=== PATIENT | male | born 1945 | race Caucasian/White ===

== ENCOUNTER → 2020-07-15 10:12 | Outpatient (REF) | payer MEDICARE, SELFPAY ==
--- NOTE | 2020-07-15 | NM_ITS ---
EXAMINATION: NM BONE SCAN OF THE WHOLE BODY CLINICAL INFORMATION: Prostate cancer. COMPARISON: No previous bone scan are available for comparison. Radiographs of the right shoulder dated 07/13/2018 are the most recent radiographs available for comparison. The diagnostic CT scan of the right shoulder dated 08/01/2018, is also available for comparison. TECHNIQUE: Multiple gamma scintillation camera images of the whole body were performed 3 hours following the intravenous administration of 34 mCi Tc-99m MDP. FINDINGS: In the head, no significant abnormalities are present. In the thoracic cage and upper extremities, there is mildly increased activity in the acromioclavicular joints bilaterally and faintly in the sternoclavicular joints bilaterally. There is a mild diffuse increase in activity in the right humeral head. In the spine, no significant abnormalities are present. In the pelvis, no significant abnormalities are present. In the lower extremities, no significant abnormalities are present. No other definite bony abnormalities are noted. The urinary bladder and faint visualization of both kidneys are noted. The CT scan of the right shoulder dated 08/01/2018 shows a comminuted fracture of the right humeral head that corresponds to mildly increased activity present on the current bone scan. IMPRESSION: A few mild nonspecific abnormalities are noted as described above and these are all likely arthritic or traumatic in etiology. None of these abnormalities is strongly suspicious for metastatic disease.
== END ==
LOC: HO.NUCMED 10:12
PROVIDERS: PCP Internal Medicine; Visit Provider Urology
DX: C61 Malignant neoplasm of prostate (principal)
CPT/HCPCS: 78306; A9503

== ENCOUNTER 2020-07-22 10:18 | Outpatient (REF) | payer MEDICARE, SELFPAY ==
--- NOTE | 2020-07-22 10:27 | CT_ITS ---
EXAMINATION: CT PELVIS WITHOUT CONTRAST CLINICAL INFORMATION: Prostate cancer COMPARISON: Previous bone scan from July 2020 TECHNIQUE: Helical scanning was performed with submillimeter collimation through the pelvis. Sagittal and coronal multiplanar 2-D reconstructions were obtained. This CT examination was performed using dose optimization techniques as appropriate, variously including the following: *Automated exposure control *Adjustment of mA and/or kV according to patient size (this includes techniques or standardized protocols for targeted exams where dose is matched to indication/reason for exam; i.e. extremities or head) *Use of iterative reconstruction technique DLP: 379 mGy-cm FINDINGS: PELVIS: The prostate gland is slightly enlarged measuring 5.7 x 5.2 cm in AP and transverse dimension. The periprostatic fat is normal. No lymphadenopathy is seen. The bladder is unremarkable. There is diverticulosis of the colon. There is evidence of atherosclerotic disease. No significant hernia is seen. No focal bone lesion is seen. There are changes of the lower lumbar spine. There is grade 1 9 mm anterior subluxation of L5 with respect to S1. There is a bilateral L5 pars defect. There is degenerative disc disease at L5-S1. There is a small radiopaque density seen right L5-S1 lateral recess. IMPRESSION: Enlarged prostate gland. No adenopathy. Diverticulosis of the colon. Post change of the lower lumbar spine. 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
== END 2020-07-22 10:19 | disposition home or self-care (01) ==
LOC: HO.CT 10:18
PROVIDERS: PCP Internal Medicine; Visit Provider Urology
DX: C61 Malignant neoplasm of prostate (principal)
CPT/HCPCS: 72192

== ENCOUNTER → 2020-08-05 09:23 | Outpatient (BNVA) | payer MEDICARE, SELFPAY | PROVIDERS: PCP Internal Medicine; Visit Provider Urology | DX: C61 Malignant neoplasm of prostate (principal); N41.9 Inflammatory disease of prostate, unspecified | CPT/HCPCS: 96402; 99212; J9217 ==

== ENCOUNTER → 2020-08-19 12:49 | Outpatient (BNVA) | payer MEDICARE, SELFPAY | PROVIDERS: PCP Internal Medicine; Visit Provider Urology | DX: C61 Malignant neoplasm of prostate (principal) | CPT/HCPCS: 81002; 99212 ==

== ENCOUNTER → 2020-09-06 13:45 | Outpatient (BNVA) | payer MEDICARE, SELFPAY | PROVIDERS: PCP Internal Medicine; Referring Provider Internal Medicine; Visit Provider Internal Medicine Cardiovascular Disease | DX: I25.10 Atherosclerotic heart disease of native coronary artery without angina pectoris (principal) | CPT/HCPCS: 93005; 99212 ==

== ENCOUNTER 2020-09-14 12:25 | Outpatient (REF) | payer MEDICARE, SELFPAY ==
--- NOTE | 2020-09-14 12:30 | XR_ITS ---
EXAMINATION: XR KNEE, RIGHT CLINICAL INFORMATION: Injury COMPARISON: None TECHNIQUE: Four views of the right knee. FINDINGS: Bone alignment is normal. No fracture or dislocation is seen. Joint spaces are normal. There is a moderate joint effusion. XR/XR knee RT 4V IMPRESSION: Joint effusion. Otherwise unremarkable exam.
== END 2020-09-14 12:26 | disposition home or self-care (01) ==
LOC: HO.HMGCX 12:25
PROVIDERS: PCP Internal Medicine; Visit Provider Nurse Practitioner Family
DX: S89.90XA Unspecified injury of unspecified lower leg, initial encounter (principal)
CPT/HCPCS: 73564

== ENCOUNTER 2020-09-19 07:01 | Outpatient (REF) | payer MEDICARE, SELFPAY ==
[2020-09-19 07:40] VITALS: BP 115/65; PULSE 84; RESP 16; TEMP 36.1; O2SAT 95
[2020-09-19 07:44] VITALS: BMI 65.7
--- NOTE | 2020-09-19 08:14 | PM.OP ---
Brief Operative Note Date of Service: 09/19/20 Pre-op diagnosis: Prostate cancer Post-op diagnosis: same Procedure: US guided prostate block US guided prostate gold seed marker placement Implants: gold seds - 2 right, 1 left Surgeon: Jonathan Winchester MD Anesthesia: local Estimated blood loss (mL): 0 Pathology: none sent Condition: stable Disposition: same day
--- NOTE | 2020-09-19 08:15 | MHC.SHP ---
Pre-Procedural Eval Section B Chief Complaint: Prostate Cancer Details of Present Illness: prostate cancer Relevant Family History (Specify if Yes): No Relevant Social History: None Present Medications: see Short Stay Collaborative assessment Medical History: No relevant PMH Allergies: Allergies Allergy/AdvReac Type Severity Reaction Status Date / Time No Known Allergies Allergy Unverified 06/23/20 16:39 [No Known Allergies*] metformin AdvReac Unknown stomach Verified 09/14/20 12:00 upset Review of Systems Sugical H&P ROS: Negative: Constitution, Cardiovascular, Respiratory, Neurological, Psychiatric, Hem-Onc, Allergic/Immunologic, Gastrointestinal, Genitourinary, Musculoskeletal, Integumentary, Endocrine and Eyes/Ears/Nose/Throat Exam Surgical H&P Exam: Normal: HEENT, Normal: Heart, Normal: Lungs, Normal: Extremities, Normal: Abdomen, Normal: Skin and Normal: Neurological Plan Diagnosis/Plan: Unchanged Patient has been examined and remains a candidate for the planned procedure
--- NOTE | 2020-09-19 08:16 | W.PM.OPN ---
Operative Note Operative Note Date of Service: 09/19/20 Narrative: Preoperative diagnosis: prostate cancer Postoperative diagnosis: prostate cancer Procedure: 1. transrectal ultrasound-guided pudendal nerve block 2. transrectal ultrasound-guided gold seed placement Surgeon: Dr. Jonathan Winchester Anesthetic: Local Indications for procedure: Prostate Cancer Procedure: After informed consent was verified, the patient was brought into the procedure area and lay left-hand side down on the table. Patient identity confirmed. Perioperative antibiotics confirmed. Gel was placed per rectum Ultrasound probe was placed per rectum A ultrasound-guided pudendal nerve block was performed using 10 cc of 1% lidocaine. 8 cc was placed at the base and 2 cc of the apex. 3 gold seed markers placed. 2 on the right, 1 on the left. The purpose is for triangulation. He tolerated the procedure well. Was able to ambulate to bathroom after 5 minutes. Printed instructions regarding antibiotic use and common side effects such as low-grade temperature and bleeding were given.
[2020-09-19 08:19] VITALS: BP 138/75; PULSE 80; RESP 16; O2SAT 94
== END 2020-09-19 07:02 | disposition home or self-care (01) ==
LOC: HO.MS 07:01
PROVIDERS: PCP Internal Medicine; Visit Provider Urology
PROC: (CPT 55876; principal; 2020-09-19 08:00)
DX: C61 Malignant neoplasm of prostate (principal)
CPT/HCPCS: 55876; 76942; A4648

== ENCOUNTER → 2021-01-25 13:18 | Outpatient (BNVA) | payer MEDICARE, SELFPAY | PROVIDERS: Visit Provider Urology | DX: C61 Malignant neoplasm of prostate (principal); N41.9 Inflammatory disease of prostate, unspecified; R39.15 Urgency of urination | CPT/HCPCS: 81002; 96402; 99212; J9217 ==

== ENCOUNTER 2021-03-07 13:40 | Outpatient (REF) | payer MEDICARE, SELFPAY ==
[2021-03-07 14:51] LABS: Glucose Urine UA NEG (NEG); Leukocyte Esterase Urine NEG (NEG); Nitrite Urine NEG (NEG); Specific Gravity - Urine >= 1.030 (1.005-1.025); Urine Blood NEG (NEG); Urine Ketones 5 MG/DL (NEG); Urine Protein TRACE MG/DL (NEG-TRACE)
[2021-03-07 14:52] LABS: Appearance Urine CLEAR; Color Urine YELLOW
[2021-03-07 15:03] LABS: Calcium Oxalate Crystals Urine 1+ /LPF; Mucus Urine 1+ /LPF; RBC Urine 0 /HPF (0); Squamous Epithelial Cell Urine 1+ /LPF
[2021-03-07 15:05] LABS: Prostate Specific Antigen 1.14 ng/mL (<0.05-4.0)
[2021-03-11 14:16] LABS: Testosterone, Total 10 ng/dL (250-1100)
== END 2021-03-07 13:41 | disposition home or self-care (01) ==
LOC: HO.LAB 13:40
PROVIDERS: Visit Provider Urology
DX: E29.1 Testicular hypofunction (principal); R39.15 Urgency of urination; C61 Malignant neoplasm of prostate; Z12.5 Encounter for screening for malignant neoplasm of prostate
CPT/HCPCS: 36415; 81001; 84153; 84403; 87086

== ENCOUNTER → 2021-06-15 13:44 | Outpatient (BNVA) | payer MEDICARE, SELFPAY | PROVIDERS: Visit Provider Urology | DX: N41.9 Inflammatory disease of prostate, unspecified (principal); C61 Malignant neoplasm of prostate | CPT/HCPCS: 99212 ==

== ENCOUNTER 2021-07-05 14:20 | Outpatient (REF) | payer MEDICARE, SELFPAY ==
--- NOTE | ~2021-07-05 | XR_ITS ---
EXAMINATION: XR ELBOW, LEFT CLINICAL INFORMATION: S50.00XA - Contusion left elbow, pain COMPARISON: None TECHNIQUE: AP, lateral, and oblique views of the left elbow. FINDINGS: There is soft tissue swelling overlying the olecranon which may represent olecranon bursal effusion. There is no fracture, dislocation, or visible intracapsular effusion. The articular surfaces appear intact. There is no joint narrowing or erosive change. There is small olecranon and a punctate spur medial epicondyle. XR/XR elbow LT min 3V IMPRESSION: 1. Soft tissue swelling overlying olecranon, possible bursal effusion. 2. No fracture or dislocation or arthropathy. 3. Tiny spurs at olecranon and medial epicondyle.
== END 2021-07-05 14:21 | disposition home or self-care (01) ==
LOC: HO.HMGCX 14:20
PROVIDERS: PCP Internal Medicine; Visit Provider Internal Medicine
DX: S50.02XA Contusion of left elbow, initial encounter (principal); X58.XXXA Exposure to other specified factors, initial encounter; Y93.9 Activity, unspecified; Y92.9 Unspecified place or not applicable; Y99.9 Unspecified external cause status
CPT/HCPCS: 73080

== ENCOUNTER → 2021-07-27 11:29 | Outpatient (BNVA) | payer MEDICARE, SELFPAY | PROVIDERS: PCP Internal Medicine; Visit Provider Urology | DX: R39.15 Urgency of urination (principal); C61 Malignant neoplasm of prostate | CPT/HCPCS: 96402; 99212; J9217 ==

== ENCOUNTER → 2021-09-07 09:59 | Outpatient (BNVA) | payer MEDICARE, SELFPAY | PROVIDERS: PCP Internal Medicine; Referring Provider Internal Medicine; Visit Provider Internal Medicine Cardiovascular Disease | DX: I25.10 Atherosclerotic heart disease of native coronary artery without angina pectoris (principal); I10 Essential (primary) hypertension; R07.9 Chest pain, unspecified; R06.02 Shortness of breath | CPT/HCPCS: 93005; 99212 ==

== ENCOUNTER → 2021-09-12 08:25 | Outpatient (REF) | payer MEDICARE, SELFPAY ==
--- NOTE | 2021-09-12 08:28 | CA_ITS ---
Transthoracic Echocardiogram Amended Patient (Last, First, Middle): Hector Huff D Gender: Male Date of : 1945 Age: 76 Procedure Date: 09/12/2021 Procedure Type: Transthoracic Echocardiogram Location: OP Height: 182.88 cm Weight: 102.06 kg BSA: 2.24 m2 Heart Rate: bpm Air Bag Builder: MALIK Referring MD: Cedric Bautista MD Symptoms: R06.02 - Shortness of breath Study Quality: Fair ECG Rhythm: Sinus Conclusions: - The left ventricular systolic function is normal. The calculated ejection fraction is 67% by biplane method. - The basal inferior segment is hypokinetic. - There is moderate calcification of the aortic valve. - There is mild mitral annular calcification. Findings Left Ventricle Normal left ventricular cavity size. The left ventricular systolic function is normal. The calculated ejection fraction is 67% by biplane method. E/E prime ratio is between 8 and 15 consistent with indeterminate filling pressures. Evidence suggests grade I (mild) diastolic dysfunction. There is mild septal and mild basal asymmetric hypertrophy. Wall Motion Rest Echo Findings The basal inferior segment is hypokinetic. Right Ventricle Normal right ventricular cavity size and systolic function. Atria Both atria are normal in size. Aortic Valve The aortic valve was not well visualized. There is moderate calcification of the aortic valve. There is no aortic valve stenosis. The peak aortic gradient is 12 mmHg.There is no aortic valve regurgitation. Mitral Valve There is mild mitral annular calcification. There is trace mitral valve regurgitation. There is no mitral valve stenosis. Pulmonic Valve The pulmonic valve was not well visualized. Tricuspid Valve There is trace tricuspid valve regurgitation. The pulmonary artery systolic pressure is normal. Great Vessels The aortic annulus, sinuses of valsalva, and asc aorta are normal in size. Venous The inferior vena cava is normal in size and collapses greater than 50% with inspiration. Pericardium/Pleural There is no evidence of pericardial effusion. Prior Study Comparison Changes noted compared to prior study dated: 05/15/2018. See comments on wall motion. Differences in study quality could also play a role. Measurements 2D Linear Measurements IVSd: 0.88 0.6-0.9/0.6-1.0 cm LVIDd: 4.49 3.9-5.3/4.2-5.9 cm LVIDd Index: 2.00 2.4-3.2/2.2-3.1 cm/m2 LVIDs: 2.73 2.0-3.6 cm LVPWd: 0.95 0.7-1.1 cm Ao Root: 3.70 2.1-3.5 cm LA Diam: 4.10 2.7-3.8/3.0-4.0 cm LAIDs Index: 1.83 1.5-2.3 cm/m2 LV Mass: 167.65 67-162/88-224 g LV Mass Index: 74.84 43-95/49-115 g/m2 LVOT Diam: 2.10 3.0+(-)1.3 cm 2D Volumes LA Vol: 25.00 2D Systolic Function EF 4C: 63.20 >55% EF 2C: 71.70 >55% EF BiP: 67.40 >55% Mitral Valve MV Pk E: 0.70 MV PK A: 0.95 MV Decel Time: 191.00 E/A: 0.70 E'Lateral: 5.44 E'Medial: 5.00 E/E' Med: 14.00 E/E' Lat: 12.80 PHT: 56.00 MVA PHT: 3.93 Decel Lamar: 3.65 Aortic Valve AoV Pk Fede: 1.74 AoV Pk Grad: 12.00 AI Pk Fede: 2.99 AI Lamar: 1.37 LVOT LVOT Pk Fede: 1.17 LVOT Mn Fede: 0.81 LVOT VTI: 0.25 LVOT Pk Grad: 5.00 LVOT Mn Grad: 3.00 LVOT Diam: 2.10 LVOT Area: 3.46 Diastolic Function MV Pk E: 0.70 MV Pk A: 0.95 E/A: 0.70 E'Medial: 5.00 E/E' Med: 14.00 E' Laterial: 5.44 E/E' Lat: 12.80 Right Ventricle TAPSE (mm): 2.35 Tricuspid Valve TR Pk Fede: 2.34 TR Pk Grad: 22.00 RA Press: 3.00 RVSP: 25.00 Great Vessels Aorta Ao Root-2D: 3.70 2.0-3.7 cm Ao Asc: 3.70 2.1-3.4 cm Updated in Other Vendor System with Status of Final Jesus Peters MD electronically signed on 09/13/2021 12:40:23 PM with status of Final
== END ==
LOC: HO.CARD 08:25
PROVIDERS: PCP Internal Medicine; Visit Provider Internal Medicine Cardiovascular Disease
DX: R06.02 Shortness of breath (principal); I10 Essential (primary) hypertension; R39.15 Urgency of urination; C61 Malignant neoplasm of prostate; E11.9 Type 2 diabetes mellitus without complications; E78.5 Hyperlipidemia, unspecified; Z95.5 Presence of coronary angioplasty implant and graft; Z88.8 Allergy status to other drugs, medicaments and biological substances
CPT/HCPCS: 93306; Q3014

== ENCOUNTER 2021-09-16 14:17 | Outpatient (REF) | payer MEDICARE, SELFPAY ==
--- NOTE | ~2021-09-16 | XR_ITS ---
EXAMINATION: XR RIBS, BILATERAL CLINICAL INFORMATION: Right anterior rib pain COMPARISON: None TECHNIQUE: 7 views of the ribs and chest PA FINDINGS: No focal consolidation, pleural effusion or pneumothorax. Heart size is normal. Atherosclerosis thoracic aorta. No acute displaced rib fracture. Osseous structures are unremarkable. Cholecystectomy clips. XR/XR ribs BI min 4V w CXR1V IMPRESSION: No acute displaced rib fracture identified. No acute pulmonary process.
--- NOTE | ~2021-09-16 | XR_ITS ---
EXAMINATION: XR SHOULDER, RIGHT CLINICAL INFORMATION: Right shoulder pain status post fall. COMPARISON: Right shoulder radiographs dated 07/13/2018. TECHNIQUE: AP external rotation, Grashey, scapular Y, and axillary views of the right shoulder. FINDINGS: Nonacute deformity is seen in the proximal right humerus. The right glenohumeral and acromioclavicular joints are intact. There is no dislocation. The visualized right ribs are intact. The soft tissues are unremarkable. XR/XR shoulder RT min 2V IMPRESSION: Deformity in the proximal right humerus appears to represent a healed fracture seen on the 2018 right shoulder radiographs. No definitive acute fracture.
== END 2021-09-16 14:18 | disposition home or self-care (01) ==
LOC: HO.HMGCX 14:17
PROVIDERS: PCP Internal Medicine; Visit Provider Physician Assistant Medical
DX: M25.511 Pain in right shoulder (principal); R07.81 Pleurodynia; W19.XXXD Unspecified fall, subsequent encounter
CPT/HCPCS: 71111; 73030

== ENCOUNTER → 2021-11-03 13:04 | Outpatient (BNVA) | payer MEDICARE, SELFPAY | PROVIDERS: Visit Provider Urology | DX: Z13.89 Encounter for screening for other disorder (principal) | CPT/HCPCS: Q3014 ==

== ENCOUNTER → 2021-11-21 07:48 | Outpatient (REF) | payer MEDICARE, SELFPAY ==
--- NOTE | ~2021-11-21 | NM_ITS ---
Myocardial perfusion study Indication: Recurrent chest pain with prior CAD to evaluate for myocardial ischemia Technique: The patient was brought in for a Lexiscan perfusion study on 11/21/2021. Patient performed low-level exercise and was injected 0.4 mg of Lexiscan intravenously. Within a minute of injection, 35 mCi of sestamibi was given intravenously. Images were obtained using the SPECT gamma camera interlaced with the gating device. Images were obtained in supine position. Resting perfusion study was performed on 11/22/2021. Patient was administered 35 mCi of sestamibi intravenously at rest. Images were then obtained in supine position. Images obtained with and without CT attenuation. Total DLP 123 mGy-cm. Images were processed with the software and compared side to side in short axis, horizontal long axis and vertical long axis views. Findings: The stress perfusion study showed non attenuated images show mildly reduced uptake in the basal lateral wall of the LV myocardium. Remainder of the LV myocardium is normally perfused. Attenuation corrected images show minimally reduced uptake in the apex of the LV myocardium.. The gated study shows normal LV systolic function with calculated LVEF of 68%. LV cavity is normal in size. The gated study shows normal systolic wall thickening and contraction of segments. Resting study shows no significant change in perfusion pattern compared to stress perfusion study. Gating at rest reveals normal systolic wall motion with ejection fraction at 73%. The findings are consistent with no reversible defect suggestive of ischemia. Likely normal myocardial perfusion. NM/NM anita perf SPECT rest & str Impression: 1. Myocardial perfusion imaging study shows likely normal myocardial perfusion 2. Gated LVEF is 68% 3. Transient ischemic dilatation not present EKG is nondiagnostic for ischemia
--- NOTE | 2021-11-21 07:50 | CA_ITS ---
Acquisition Time: 2021-11-21 07:48:29 Total Exercise Time: 00:02:00 Test Indications: CP, SOB Medications: SEE CHART Protocol: LEXISCAN Max HR: 103 BPM 72% of Pred: 143 BPM Max BP: 122/070 mmHG Max Work Load: 1.0 METS Pharmacological stress test with Lexiscan injection, while sitting and kicking his legs, without anginal symptoms, without arrythmia, with normotensive response to injection, with nondiagnostic EKG for ischemia. Nuclear images pending. Test reviewed with Dr Bautista. Referred By: Cedric Bautista Overread By: PARAG PEREZ
== END ==
LOC: HO.CARD 07:48
PROVIDERS: PCP Internal Medicine; Visit Provider Internal Medicine Cardiovascular Disease
DX: R07.9 Chest pain, unspecified (principal); R06.02 Shortness of breath; I25.10 Atherosclerotic heart disease of native coronary artery without angina pectoris
CPT/HCPCS: 78452; 93017; A9500; J0280; J2785

== ENCOUNTER → 2021-11-30 14:37 | Outpatient (BNVA) | payer MEDICARE, SELFPAY | PROVIDERS: PCP Internal Medicine; Referring Provider Internal Medicine; Visit Provider Nurse Practitioner Family | DX: R07.89 Other chest pain (principal); I25.10 Atherosclerotic heart disease of native coronary artery without angina pectoris; I10 Essential (primary) hypertension; E78.5 Hyperlipidemia, unspecified; Z95.5 Presence of coronary angioplasty implant and graft | CPT/HCPCS: 99212 ==

== ENCOUNTER 2022-02-28 13:58 | Outpatient (REF) | payer MEDICARE, SELFPAY ==
[2022-02-28 16:51] LABS: Alanine Aminotransferase 10 U/L (0-40); Anion Gap 12 (12-20); Aspartate Amino Transferase 14 U/L (5-37); Blood Urea Nitrogen 14 mg/dL (9-16); Calcium 9.5 mg/dL (8.4-10.2); Carbon Dioxide 28 mmol/L (22-29); Chloride 107 mmol/L (96-108); Cholesterol 137 mg/dL; Estimated Glomerular Filt Rate > 60; Glucose Random 199 mg/dL (60-115); HDL Cholesterol 40 mg/dL; LDL Cholesterol Calculated 61 mg/dl; Potassium 4.9 mmol/L (3.3-5.1); Sodium 142 mmol/L (135-145); Triglycerides 183 mg/dL
[2022-02-28 17:11] LABS: Prostate Specific Antigen 0.25 ng/mL (<0.05-4.0)
[2022-03-05 11:36] LABS: Testosterone, Total 11 ng/dL (250-1100)
== END 2022-02-28 13:59 | disposition home or self-care (01) ==
LOC: HO.HMGCLDS 13:58
PROVIDERS: Absent Provider Nurse Practitioner Family; PCP Internal Medicine; Visit Provider Urology
DX: Z12.5 Encounter for screening for malignant neoplasm of prostate (principal); C61 Malignant neoplasm of prostate; E78.5 Hyperlipidemia, unspecified; I25.10 Atherosclerotic heart disease of native coronary artery without angina pectoris
CPT/HCPCS: 36415; 80048; 80061; 84153; 84403; 84450; 84460

== ENCOUNTER → 2022-03-06 10:13 | Outpatient (BNVA) | payer MEDICARE, SELFPAY | PROVIDERS: PCP Internal Medicine; Visit Provider Urology | DX: C61 Malignant neoplasm of prostate (principal) | CPT/HCPCS: Q3014 ==

== ENCOUNTER → 2022-03-08 13:21 | Outpatient (BNVA) | payer MEDICARE, SELFPAY | PROVIDERS: PCP Internal Medicine; Referring Provider Internal Medicine; Visit Provider Internal Medicine Cardiovascular Disease | DX: I25.10 Atherosclerotic heart disease of native coronary artery without angina pectoris (principal) | CPT/HCPCS: 99212 ==

== ENCOUNTER → 2022-07-06 10:22 | Outpatient (BNVA) | payer MEDICARE, SELFPAY | PROVIDERS: PCP Internal Medicine; Visit Provider Urology | DX: R97.21 Rising PSA following treatment for malignant neoplasm of prostate (principal); C61 Malignant neoplasm of prostate; N40.1 Benign prostatic hyperplasia with lower urinary tract symptoms; N13.8 Other obstructive and reflux uropathy; R33.8 Other retention of urine | CPT/HCPCS: Q3014 ==

== ENCOUNTER → 2022-09-20 10:28 | Outpatient (BNVA) | payer MEDICARE, SELFPAY | PROVIDERS: PCP Family Medicine; Referring Provider Internal Medicine; Visit Provider Internal Medicine Cardiovascular Disease | DX: I25.10 Atherosclerotic heart disease of native coronary artery without angina pectoris (principal); I10 Essential (primary) hypertension; E11.9 Type 2 diabetes mellitus without complications; G20 Parkinson's disease; R54 Age-related physical debility; Z95.5 Presence of coronary angioplasty implant and graft; Z79.4 Long term (current) use of insulin | CPT/HCPCS: 93005; 99212 ==

== ENCOUNTER → 2022-10-04 13:17 | Outpatient (BNVA) | payer MEDICARE, SELFPAY | PROVIDERS: PCP Family Medicine; Visit Provider Urology | DX: N39.0 Urinary tract infection, site not specified (principal); R97.21 Rising PSA following treatment for malignant neoplasm of prostate | CPT/HCPCS: Q3014 ==

== ENCOUNTER → 2022-11-16 13:55 | Outpatient (BNVA) | payer MEDICARE, SELFPAY | PROVIDERS: PCP Family Medicine; Visit Provider Urology | DX: C61 Malignant neoplasm of prostate (principal); C79.51 Secondary malignant neoplasm of bone; R39.15 Urgency of urination; I25.10 Atherosclerotic heart disease of native coronary artery without angina pectoris; I10 Essential (primary) hypertension; M85.80 Other specified disorders of bone density and structure, unspecified site; Z95.5 Presence of coronary angioplasty implant and graft; Z79.82 Long term (current) use of aspirin; Z79.899 Other long term (current) drug therapy | CPT/HCPCS: 96402; 99212; J9217 ==

== ENCOUNTER 2023-02-01 14:37 | Outpatient (REF) | payer MEDICARE, SELFPAY ==
--- NOTE | ~2023-02-01 | MM_ITS ---
EXAMINATION: BONE DENSITOMETRY CLINICAL INDICATION: Other specified disorders of bone density and structure, unspecified. COMPARISON: None (current study represents initial baseline exam). TECHNIQUE: Using a [employer] DXA System (software version: 13.1) manufactured by [employer], dual-energy x-ray absorptiometry was performed of the lumbar spine and left hip. The images are of good technical quality. Summary results are attached. FINDINGS: AP SPINE L1-L2 (excluding L3 and L4): The data of L1-L4 has been changed to exclude the L3 and L4 vertebral bodies, because degenerative changes at these levels may cause overestimation of lumbar spine density. BMD 0.997 g/cm2, Z-score -1.8, T-score -1.7, osteopenia. LEFT FEMUR, NECK: BMD 0.793 g/cm2, Z-score -1.1, T-score -2.1, osteopenia. LEFT FEMUR, TOTAL: BMD 0.859 g/cm2, Z-score -1.1, T-score -1.7, osteopenia. IDENTIFIED RISK FACTORS: Recurrent falls, history of fracture (adult). HISTORY OF FRACTURE: Other. MEDICATIONS: Calcium supplements or multivitamin, vitamin D. MM/XR DEXA axial skeleton IMPRESSION: 1. DIAGNOSIS: Osteopenia based on the lowest T-score value of -2.1 in the femoral neck applying World Health Organization criteria. 2. 10-YEAR FRACTURE RISK PREDICTION, FRAX: Major osteoporotic fracture (clinical spine, forearm, hip or shoulder) 12.9%. Hip fracture 4.6%. 3. Treatment Recommendations: NOF guidelines recommend consideration for treatment in postmenopausal women and men age 50 and older presenting with the following: -A hip or vertebral (clinical or morphometric) fracture. -T-score less than or equal to -2.5 at the femoral neck or spine after appropriate evaluation to exclude secondary causes. -Low bone mass at the hip or spine and a 10-year fracture probability by FRAX of greater than or equal to 3% for hip fracture or greater than or equal to 20% for major osteoporotic fracture based on the [place] adapted WHO algorithm. 4. Other Recommendations: All treatment decisions require clinical judgment and consideration of individual patient factors, including patient preferences, comorbidities, previous drug use, risk factors not captured in the FRAX model (e.g. frailty, falls, vitamin D deficiency, increased bone turnover, interval significant decline in bone density) and possible under or overestimation of fracture risk by FRAX. Additional medical evaluation for secondary cause of low bone mineral density may be appropriate. FUTURE SCAN RECOMMENDATION: People with diagnosed cases of osteoporosis or at high risk for fracture should have regular bone mineral density tests. For patients eligible for Medicare, routine testing is allowed once every 2 years. The testing frequency can be increased to one year for patients who have rapidly progressing disease, those who are receiving or discontinuing medical therapy to restore bone mass, or have additional risk factors.
[2023-02-01 17:19] LABS: Prostate Specific Antigen 5.55 ng/mL (<0.05-4.0)
[2023-02-07 13:49] LABS: Testosterone, Total 5 ng/dL (250-1100)
== END 2023-02-01 14:38 | disposition home or self-care (01) ==
LOC: HO.MAMMO 14:37
PROVIDERS: PCP Family Medicine; Visit Provider Urology
DX: Z13.820 Encounter for screening for osteoporosis (principal); C61 Malignant neoplasm of prostate; C79.51 Secondary malignant neoplasm of bone; M85.80 Other specified disorders of bone density and structure, unspecified site; R29.6 Repeated falls; Z79.899 Other long term (current) drug therapy; Z12.5 Encounter for screening for malignant neoplasm of prostate
CPT/HCPCS: 36415; 77080; 84153; 84403

== ENCOUNTER → 2023-02-12 13:54 | Outpatient (BNVA) | payer MEDICARE, SELFPAY | PROVIDERS: PCP Family Medicine; Visit Provider Urology | DX: C61 Malignant neoplasm of prostate (principal); C79.51 Secondary malignant neoplasm of bone | CPT/HCPCS: 99212 ==

== ENCOUNTER → 2023-05-06 10:05 | Outpatient (REF) | payer MEDICARE, SELFPAY ==
--- NOTE | ~2023-05-06 | NM_ITS ---
EXAMINATION: NM BONE SCAN OF THE WHOLE BODY CLINICAL INFORMATION: Malignant neoplasm of the prostate. COMPARISON: Whole-body bone scan done on 07/15/2020. TECHNIQUE: Multiple gamma scintillation camera images of the whole body were performed 2.25 hours following the intravenous administration of 37 mCi Tc-99m MDP. The radiotracer was injected through the left antecubital superficial vein without complications. FINDINGS: In the head, interval development of 2 foci (right greater than left) of increased radiotracer activity seen along the posterior right occipital region, highly suspicious for metastatic disease. In the thoracic cage and upper extremities, interval development of linear abnormal increased radiotracer activities are present at upper posterior thoracic cage bilaterally, specifically involving posterior medial aspect of the right fourth rib and mid posterior aspect of the right fifth rib, most consistent with developing metastatic disease. Contiguous abnormal increased radiotracer activities are also noted along the anterior aspect of the thoracic cage bilaterally (left greater than right), most consistent with healing rib fractures. In the spine, interval development of intense focal abnormal increased activities are present at mid thoracic spine and at lower thoracic spine, specifically at L5, L4 and T7 and T8 vertebral bodies, most consistent with metastatic disease. In the pelvis, interval development of apparent increased radiotracer activities are present in the region of the inferior history pubic rami bilaterally, may represent artifact from urinary contamination versus healing fracture versus evolving metastatic disease or combination thereof. Further differentiation cannot be made based on this imaging appearance alone. This finding is new since the prior study. In the lower extremities, no suspicious focal increased radiotracer activities. No other definite bony abnormalities are noted. The urinary bladder and faint visualization of both kidneys are noted. NM/NM bone scan whole body IMPRESSION: 1. Interval development of multifocal abnormal increased radiotracer activities are present involving the skull, the thoracic cage and the thoracic and lumbosacral spine since the most recent prior study dated 07/25/2020, all of them are suspicious for metastatic disease. 2. Abnormal increased radiotracer activities are also noted within the anterior medial aspect of the thoracic cage bilaterally (left greater than right), given the contiguity of rib involvement is and their location as well as the morphology, the findings are most consistent with healing rib fractures. 3. Follow-up PSMA PET/CT study may be considered for further full detail evaluation, if clinically appropriate.
== END ==
LOC: HO.NUCMED 10:05
PROVIDERS: PCP Family Medicine; Referring Provider Urology; Visit Provider Urology
DX: C61 Malignant neoplasm of prostate (principal); C79.51 Secondary malignant neoplasm of bone
CPT/HCPCS: 78306; A9503

== ENCOUNTER 2023-05-15 14:10 | Outpatient (AMB) | payer MEDICARE, SELFPAY ==
--- NOTE | 2023-05-15 14:12 | A.OFFVIS_ITS ---
Intake Intake Visit Reasons: 3M LABS/Bone Scan/GnRH(set) Intake Note: Pt presents to the office today for a 3 month follow up labs/bone scan/GnRH. Allergies metformin Adverse Reaction (Unknown, Verified 05/15/23 14:13) Diarrhea Medication List - Last Reconciled 05/15/23 by Jonathan Winchester MD abiraterone 250 mg PO DAILY 90 days aspirin (Ecotrin Low Strength) 81 mg PO DAILY atorvastatin 80 mg PO DAILY bupropion HCl 150 mg PO BID carbidopa 25 mg PO Q8H carbidopa-levodopa 25-100 mg 2 tabs PO TID cholecalciferol (vitamin D3) 25 mcg PO DAILY finasteride 5 mg PO DAILY 90 days insulin glargine (Lantus Solostar U-100 Insulin) 26 units subcut BID isosorbide mononitrate ER 60 mg PO DAILY liraglutide 1.2 mg subcut DAILY metoprolol succinate ER 25 mg PO DAILY naproxen 500 mg PO BID PRN nitroglycerin 0.4 mg sublingual Q5M PRN prednisone 2.5 mg PO DAILY 90 days semaglutide (Ozempic) 0.5 mg subcut QWEEK sertraline 150 mg PO DAILY tamsulosin 0.4 mg PO BEDTIME 90 days tizanidine 4 mg PO TID HPI HPI Comments History of Present Illness Details Hector is a pleasant male. He is a patient of Dr. Renae. He is seen for the following urologic reasons - prostate cancer - post XRT with early biochemical failure with M1 disease - urinary urgency Discussed imaging results Appropriate response to abiraterone Has fatigue - will increase prednisone to 5 mg p.o. b.i.d. Three month follow-up labs 05/29 1.6 T<5 Continued partial response GnRH with Prolia today Bone scan - metastatic disease - multifocal abnormal increased radiotracer activities are present involving the skull, the thoracic cage and the thoracic and lumbosacral spine Refer radiation oncology and oncology 01/27 - P 5.6 T5 DEXA Osteopenia 10/29 biochemical failure with M1 disease on PET-CT - restart GnRH - add abiterone - on single dose 01/27 - P 5.6 T5 DEXA Osteopenia Prostate cancer: 06/2620 Grade group 4, radiation with hormone therapy GnRH 18m - 08/28 early biochemical failure with M1 disease Prostate cancer was diagnosed June [address] Winchester. PSA - 02/25 0.25, 06/28 2.5 T 263, 09/27 8.6 Current medications - tamsulosin Diagnosis was reached by needle biopsy, for elevated PSA, PSA at diagnosis 7.9 on finasteride. The Carlos grade is June 202007/18 cores - 4+3 = 7, 4+4 = 8 High volume disease. TNM Classification of Malignant Tumours (TNM) T1c. The D'Luz Elena (NCCN) risk category is High Risk (PSA > 20, Gl 8+, T3), Group 4, localized Staging - 07/27 CT and bone scan NAD Initial therapy included Primary treatment, External beam radiation with medium term hormonal ablation - [facility] completed December 2020 - Dr Sawant - GnRH 08/05/20, 01/25/21, 07/26/21 PSA - 03/27 1.1 T 10, 07/27 0.5 T<3, 02/25 0.25 T 11 Imaging - 10/29 PET/CT - multifocal osseous metabolic activity PFSH Medical History CAD (coronary artery disease) Diabetes mellitus HTN (hypertension) Hyperlipidemia Knee effusion, right Physical therapy evaluation, initial Surgical History History of back surgery Stented coronary artery Family History Other CVD (cardiovascular disease) Diabetes mellitus Social History Alcohol intake: never Patient Tobacco Use Status: Never used Tobacco Review of Systems Const Denies chills and Denies fever(s) Card Reports no additional complaints and Denies syncope Resp Denies cough GI Denies abdominal pain and Denies heartburn Reports as per HPI and Denies change in libido Neuro Denies syncope Psych Denies change in libido Endo Denies change in libido Physical Exam Const General: cooperative, healthy appearing, comfortable and no acute distress Orientation/consciousness: patient oriented x3 HEENT Face and sinus: Yes normal facial exam Mouth: moist mucous membranes Neck Neck: Yes normal visual inspection, Yes full ROM and Yes trachea midline Chest Chest palpation & inspection: normal inspection of the chest Resp Effort & Inspection: normal respiratory effort, able to speak in complete sentences and no respiratory distress GI Inspection: Yes normal to inspection Back/Spine/Pelvis Cervical Spine: normal cervical lordosis Thoracic/Lumbar Spine: thoracic and lumbar spine normal to inspection Skin General skin exam: no rashes or lesions noted Neuro General: patient oriented x3, gait normal, tone normal and moves all extremities Extrem General: Yes normal to inspection and Yes capillary refill normal Office Meds Prolia Performing Provider: Jonathan Winchester MD Administered by: Gisela Fish RN on 05/15/23 14:45 Dose Route Admin Location Lot Number Expiration Date [employer] 60 mg subcut left arm [id number] 06/06/25 96918-697-51 [employer] Eligard (6 month) Performing Provider: Jonathan Winchester MD Administered by: Gisela Fish RN on 05/15/23 14:45 Dose Route Admin Location Lot Number Expiration Date [employer] [facility] [facility] 45 mg subcut right arm [id number] 08/07/24 41804-058-70 [email or web address]. Assessment & Plan Assessment & Plan (1) Prostate cancer metastatic to bone: Code(s): C61 - Malignant neoplasm of prostate; C79.51 - Secondary malignant neoplasm of bone Plan Three months labs Orders: Orders AMB Leuprolide Injection - Practice Supplied Today C61 - Malignant neoplasm of prostate, C79.51 - Secondary malignant neoplasm of bone AMB Denosumab Injection Practice Supplied Today C61 - Malignant neoplasm of prostate, C79.51 - Secondary malignant neoplasm of bone Prostate Specific Antigen 3 Months C61 - Malignant neoplasm of prostate, C79.51 - Secondary malignant neoplasm of bone Testosterone, Total 3 Months C61 - Malignant neoplasm of prostate, C79.51 - Secondary malignant neoplasm of bone Referrals Hematology & Oncology Referral C61 - Malignant neoplasm of prostate, C79.51 - Secondary malignant neoplasm of bone Radiation Oncology Referral C61 - Malignant neoplasm of prostate, C79.51 - Secondary malignant neoplasm of bone Medications: Changed From prednisone 2.5 mg PO DAILY 90 days 90 tabs 3RF C61 - Malignant neoplasm of prostate, C79.51 - Secondary malignant neoplasm of bone To prednisone 5 mg PO BID 180 tabs 3RF 90 days C61 - Malignant neoplasm of prostate, C79.51 - Secondary malignant neoplasm of bone Discontinued finasteride Discontinued Reason: Doctor's Order 5 mg PO DAILY 90 tabs 1RF 90 days C61 - Malignant neoplasm of prostate, N13.8 - Other obstructive and reflux uropathy, N40.1 - Benign prostatic hyperplasia with lower urinary tract symptoms, R33.9 - Retention of urine, unspecified Patient Instructions: Imaging studies, laboratory and physical exam results were discussed and reviewed in detail. No major barriers to patient understanding were identified. An opportunity to ask questions regarding the treatment plan was provided. All questions were answered. The patient expressed understanding and agreement with the above treatment plan. The patient is aware they should contact our office by phone for worsening of their current condition or the appearance of new urologic symptoms. Compliance is encouraged with any medications and followup testing that is ordered. It is a privilege to participate in the urologic care of your patient. If you have any questions or concerns regarding treatment for the above conditions, or other urologic issues, please do not hesitate to contact me. The office telephone contact is [phone]. This note is constructed using voice recognition software. While every effort has been made to ensure accuracy pharmacology teacher errors may have been included. Yours sincerely, Dr Jonathan Winchester MD, [facility] - Urology Providers of Expert, Compassionate Care for the Genitourinary System Coding Level of Care Code Est Pt Level 4 (49483) Diagnoses Prostate cancer metastatic to bone C61; C79.51
== END 2023-05-15 14:55 | disposition home or self-care (01) ==
PROVIDERS: Visit Provider Urology
DX: C61 Malignant neoplasm of prostate (principal); C79.51 Secondary malignant neoplasm of bone
CPT/HCPCS: 99214

== ENCOUNTER → 2023-05-15 14:10 | Outpatient (BNVA) | payer MEDICARE, SELFPAY | PROVIDERS: Visit Provider Urology | DX: C61 Malignant neoplasm of prostate (principal); C79.51 Secondary malignant neoplasm of bone | CPT/HCPCS: 96372; 96402; 99212; J0897; J9217 ==

== ENCOUNTER 2023-09-03 15:21 | Outpatient (AMB) | payer MEDICARE, SELFPAY ==
--- NOTE | 2023-09-03 15:21 | MHC.OFFVIS ---
Intake Intake Visit Reasons: 3M PSA/Testosterone(set) Intake Note: Patient is present for Telephone follow up Allergies metformin Adverse Reaction (Unknown, Verified 05/15/23 14:13) Diarrhea Medication List - Last Reconciled 09/03/23 by Jonathan Winchester MD abiraterone 250 mg PO DAILY 90 days aspirin (Ecotrin Low Strength) 81 mg PO DAILY atorvastatin 80 mg PO DAILY bupropion HCl 150 mg PO BID carbidopa 25 mg PO Q8H carbidopa-levodopa 25-100 mg 2 tabs PO TID cholecalciferol (vitamin D3) 25 mcg PO DAILY insulin glargine (Lantus Solostar U-100 Insulin) 26 units subcut BID isosorbide mononitrate ER 60 mg PO DAILY liraglutide 1.2 mg subcut DAILY metoprolol succinate ER 25 mg PO DAILY naproxen 500 mg PO BID PRN nitroglycerin 0.4 mg sublingual Q5M PRN prednisone 5 mg PO BID 90 days semaglutide (Ozempic) 0.5 mg subcut QWEEK sertraline 150 mg PO DAILY tamsulosin 0.4 mg PO BEDTIME 90 days tizanidine 4 mg PO TID HPI HPI Comments History of Present Illness Details Hector is a pleasant male. He is a patient of Dr. Renae. He is seen for the following urologic reasons - prostate cancer - post XRT with early biochemical failure with M1 disease - urinary urgency Telemedicine Evaluation 15 min Consultation Doximity Brayden Video attempted 08/29 1.9 T<3 Completed assessment with Radiation Oncology at [facility]. Dr Miller. Would offer palliative radiation for symptomatic control. Note reviewed. Completed assessment with Medical Oncology at [facility]. Dr Markham. They were able to get abiraterone coverage for medication. I suggested that [facility] oncology might be able to take of the primary responsibility for metastatic prostate cancer therapy. At this point in time the oncologists have more to offer in this situation than Urology. I would continue to follow PSA. Bone scan due in 3 months, GnRH due in 3 months. 05/29 1.6 T<5 Continued partial response GnRH with Prolia today Bone scan - metastatic disease - multifocal abnormal increased radiotracer activities are present involving the skull, the thoracic cage and the thoracic and lumbosacral spine 01/27 - P 5.6 T5 DEXA Osteopenia 10/29 biochemical failure with M1 disease on PET-CT - restart GnRH - add abiterone - on single dose 01/27 - P 5.6 T5 DEXA Osteopenia Prostate cancer: 06/2620 Grade group 4, radiation with hormone therapy GnRH 18m - 08/28 early biochemical failure with M1 disease Prostate cancer was diagnosed June [address] Winchester. PSA - 02/25 0.25, 06/28 2.5 T 263, 09/27 8.6 Current medications - tamsulosin Diagnosis was reached by needle biopsy, for elevated PSA, PSA at diagnosis 7.9 on finasteride. The Carlos grade is June 202007/18 cores - 4+3 = 7, 4+4 = 8 High volume disease. TNM Classification of Malignant Tumours (TNM) T1c. The D'Luz Elena (NCCN) risk category is High Risk (PSA > 20, Gl 8+, T3), Group 4, localized Staging - 07/27 CT and bone scan NAD Initial therapy included Primary treatment, External beam radiation with medium term hormonal ablation - [facility] completed December 2020 - Dr Sawant - GnRH 08/05/20, 01/25/21, 07/26/21 PSA - 03/27 1.1 T 10, 07/27 0.5 T<3, 02/25 0.25 T 11 Imaging - 10/29 PET/CT - multifocal osseous metabolic activity [facility] Medical History CAD (coronary artery disease) Diabetes mellitus HTN (hypertension) Hyperlipidemia Knee effusion, right Physical therapy evaluation, initial Surgical History History of back surgery Stented coronary artery Family History Other CVD (cardiovascular disease) Diabetes mellitus Social History Alcohol intake: never Patient Tobacco Use Status: Never used Tobacco Review of Systems Const All systems reviewed & are unremarkable except as noted in HPI and below Reports no additional complaints Resp Reports no additional complaints GI Reports no additional complaints Reports as per HPI Musc Reports no additional complaints Physical Exam Telemedicine evaluation Appropriate responses Regular breathing rate and rhythm HEENT Head: Yes normal to inspection Ears: hearing grossly normal bilaterally Eyes General: appearance normal, both eyes and all related structures Neck Neck: Yes normal visual inspection Chest Chest palpation & inspection: normal inspection of the chest Resp Effort & Inspection: normal respiratory effort and able to speak in complete sentences Assessment & Plan Assessment & Plan (1) Prostate cancer metastatic to bone: Code(s): C61 - Malignant neoplasm of prostate; C79.51 - Secondary malignant neoplasm of bone Plan Three month follow-up lab work Orders: Orders Prostate Specific Antigen 3 Months C61 - Malignant neoplasm of prostate, C79.51 - Secondary malignant neoplasm of bone, E11.69 - Type 2 diabetes mellitus with other specified complication, N52.1 - Erectile dysfunction due to diseases classified elsewhere Testosterone, Total 3 Months C61 - Malignant neoplasm of prostate, C79.51 - Secondary malignant neoplasm of bone Patient Instructions: Imaging studies, laboratory and physical exam results were discussed and reviewed in detail. No major barriers to patient understanding were identified. An opportunity to ask questions regarding the treatment plan was provided. All questions were answered. The patient expressed understanding and agreement with the above treatment plan. The patient is aware they should contact our office by phone for worsening of their current condition or the appearance of new urologic symptoms. Compliance is encouraged with any medications and followup testing that is ordered. It is a privilege to participate in the urologic care of your patient. If you have any questions or concerns regarding treatment for the above conditions, or other urologic issues, please do not hesitate to contact me. The office telephone contact is [phone]. This note is constructed using voice recognition software. While every effort has been made to ensure accuracy dry room attendant errors may have been included. Yours sincerely, Dr Jonathan Winchester MD, [facility] - Urology Providers of Expert, Compassionate Care for the Genitourinary System Telehealth Telehealth Location of provider rendering services: practice address Location of patient: address on file Patient Identification confirmed using: Name, : Yes Telehealth method: video Patient verbally consented to treatment: Yes Patient verbally consented to billing insurance company: Yes Patient informed of any privacy concerns related to visit: Yes Coding Level of Care Code Tele Est Pt Level 3 (60122) Diagnoses Prostate cancer metastatic to bone C61; C79.51
== END 2023-09-03 16:52 | disposition home or self-care (01) ==
LOC: HO.HUSH 15:21
PROVIDERS: PCP Family Medicine; Visit Provider Urology
DX: C61 Malignant neoplasm of prostate (principal); C79.51 Secondary malignant neoplasm of bone
CPT/HCPCS: 99213

== ENCOUNTER → 2023-09-03 15:21 | Outpatient (BNVA) | payer MEDICARE, SELFPAY | PROVIDERS: PCP Family Medicine; Visit Provider Urology ==

== ENCOUNTER 2023-10-09 11:08 | Outpatient (AMB) | payer MEDICARE, SELFPAY ==
[2023-10-09 11:17] VITALS: BP 124/82; PULSE 74; BMI 28.4
--- NOTE | 2023-10-09 11:17 | MHC.OFFVIS ---
Intake Vital Signs 10/09/23 11:17 Height 6 ft Weight 209 lb 7.026 oz BMI 28.4 BP 124/82 Blood Pressure Location Lt brachial Position Sitting Pulse 74 Intake Visit Reasons: 1 yr f/up Intake Note: 1 year follow-up with ekg feeling good Financial Administrator Required: No Prosthetic Aide: Prosthetic Aide Present Accompanied by: Spouse Allergies metformin Adverse Reaction (Unknown, Verified 05/15/23 14:13) Diarrhea Medication List - Last Reconciled 10/09/23 by Cedric Bautista MD abiraterone 250 mg PO DAILY 90 days aspirin (Ecotrin Low Strength) 81 mg PO DAILY atorvastatin 80 mg PO DAILY bupropion HCl 150 mg PO BID carbidopa 25 mg PO Q8H carbidopa-levodopa 25-100 mg 2 tabs PO TID celecoxib 100 mg PO DAILY cholecalciferol (vitamin D3) 25 mcg PO DAILY finasteride 5 mg PO DAILY insulin glargine (Lantus Solostar U-100 Insulin) 26 units subcut BID isosorbide mononitrate ER 60 mg PO DAILY liraglutide 1.2 mg subcut DAILY metoprolol succinate ER 25 mg PO DAILY nitroglycerin 0.4 mg sublingual Q5M PRN prednisone 5 mg PO BID 90 days semaglutide (Ozempic) 0.5 mg subcut QWEEK sertraline 150 mg PO DAILY tamsulosin 0.4 mg PO BEDTIME 90 days tizanidine 4 mg PO TID HPI HPI Comments History of Present Illness Details Hector comes for follow-up accompanied by his . He comes for annual follow-up. Overall patient has had systemic issues with it stage IV prostate cancer as well as worsening Parkinson's disease and has had multiple falls related to it. No cardiac symptoms. He appears overall depressed. Denies any chest pain including with anxiety. Takes all his medications. No other cardiac complaints. [facility] Medical History Physical therapy evaluation, initial Knee effusion, right CAD (coronary artery disease) HTN (hypertension) Hyperlipidemia Diabetes mellitus Surgical History Stented coronary artery History of back surgery Family History Other CVD (cardiovascular disease) Diabetes mellitus Social History Alcohol intake: never Patient Tobacco Use Status: Never used Tobacco Review of Systems Const Denies chills, Denies fatigue, Denies fever(s), Denies frequent falls, Denies weakness, Denies weight gain and Denies weight loss ENT Denies dizziness Card Denies chest pain, Denies leg edema, Denies lightheadedness, Denies palpitations, Denies dyspnea, Denies dyspnea on exertion, Denies orthopnea and Denies other (loss of consciousness) Resp Denies cough, Denies dyspnea and Denies dyspnea on exertion GI Denies hematochezia and Denies change in stool character Musc Denies abnormal gait, Denies muscle weakness, Denies numbness, Denies radiating pain into limb and Denies tingling Neuro Denies abnormal gait, Denies dizziness, Denies frequent falls, Denies numbness, Denies tingling and Denies weakness Endo Denies fatigue and Denies palpitations Physical Exam Vital Signs: Last Vital Signs Pulse 74 10/09/23 11:17 BP 124/82 10/09/23 11:17 BMI result Body Mass Index 28.4 Const General: cooperative, comfortable, no acute distress, alert, awake and tired appearing Nutritional Appearance: obese and other (Frail elderly man) Orientation/consciousness: patient oriented x3 Limitations: wheelchair Neck Neck: Yes trachea midline, Yes supple and Yes no JVD Resp Effort & Inspection: normal respiratory effort Auscultation: clear to auscultation bilaterally Cardio Jugular venous distension: no JVD Palpation: normal PMI Rate: regular rate Rhythm: regular rhythm Heart sounds: S1 normal heart sound present, S2 normal heart sound present, no click, no gallops, no murmurs and no rubs GI Auscultation: normal bowel sounds Skin General skin exam: no rashes or lesions noted and ecchymosis Neuro General: patient oriented x3 and no focal motor deficits Extrem General: Yes no clubbing, cyanosis or edema Office Procedures EKG Details: EKG shows normal sinus rhythm with inferior Q-waves with poor R-wave progression in anterolateral leads, unchanged from before [id number], Complete Assessment & Plan Assessment & Plan (1) CAD (coronary artery disease): Code(s): I25.10 - Atherosclerotic heart disease of [place] coronary artery without angina pectoris Plan: CAD which is stable with no recurrent symptoms. At this point time his coronary artery disease has remained stable for many years. No further workup is indicated given his overall medical condition. Continue high-intensity statin therapy. Continue low-dose aspirin therapy. We discussed about further management and given that he is not having any ongoing symptoms can follow up in the office on a p.r.n. basis given that his become very difficult for him to go to different doctors visits. Continue aggressive management of diabetes. (2) HTN (hypertension): Code(s): I10 - Essential (primary) hypertension Plan: Hypertension which is well optimized on current therapy. Continue the same. Continue to monitor blood pressure at home. Goal blood pressure less than 130/84. Low-salt diet was discussed Will follow up in the clinic in 1 year's time or p.r.n.. Thank you for allowing me to partake in his care Coding Level of Care Code Est Pt Level 4 (25317) Diagnoses CAD (coronary artery disease) I25.10 HTN (hypertension) I10 CPT Codes EKG - CPT: [id number], Complete ([id number])
== END 2023-10-09 11:50 | disposition home or self-care (01) ==
PROVIDERS: PCP Family Medicine; Visit Provider Internal Medicine Cardiovascular Disease
DX: I25.10 Atherosclerotic heart disease of native coronary artery without angina pectoris (principal); I10 Essential (primary) hypertension
CPT/HCPCS: 93010; 99214

== ENCOUNTER → 2023-10-09 11:08 | Outpatient (BNVA) | payer MEDICARE, SELFPAY | PROVIDERS: PCP Family Medicine; Visit Provider Internal Medicine Cardiovascular Disease | DX: I25.10 Atherosclerotic heart disease of native coronary artery without angina pectoris (principal); I10 Essential (primary) hypertension | CPT/HCPCS: 93005; 99212 ==